=== PATIENT | female | born 1975 | race American Indian/Alaskan Native ===

== ENCOUNTER 2020-10-26 10:43 | Outpatient (CLI) | payer OTHER | END 2020-10-26 22:11 | disposition home or self-care (01) | LOC: LABW 10:43 | PROVIDERS: ATTEND Internal Medicine Gastroenterology | DX: Z86.010 Personal history of colon polyps (principal) | CPT/HCPCS: 82272 ==

== ENCOUNTER 2022-10-31 11:39 | Emergency (ER) | payer OTHER ==
[~2022-10-31] VITALS: Ht 157.5 cm; Wt 97.1 kg
[2022-10-31 11:42] VITALS: BP 170/97; TEMP 99.9
== END 2022-10-31 13:24 | disposition home or self-care (01) ==
LOC: ED 11:39
DX: M54.59 Other low back pain (principal); I10 Essential (primary) hypertension
CPT/HCPCS: 81002; 96372; 99283; J1885